=== PATIENT | female | born 1975 | race American Indian/Alaskan Native ===

== ENCOUNTER 2017-07-23 19:53 | Emergency (ER) | payer SELFPAY ==
[~2017-07-23] VITALS: Ht 149.9 cm; Wt 60.0 kg
[~2017-07-23 19:53] MED LIST: DOXYCYCLINE 10100 MG PO; GLUCOPHAGE500 MG/TAB; LORTAB 5/500 501 TAB PO; METFORMIN500 MG PO; MOTRIN 600600 MG/TAB PO; NO HOME MEDICATIONS; NORCO 325 MG-51 TAB PO; PEN-VEE K250 MG PO; PERCOCET 325 MG1 TA2 PO; PHENERGAN 25 TA25 MG PO; PHENERGAN W/CO120 ML PO; PREDNISONE20 MG PO; PROAIR HFA0.09 MG/AC IH; PROVENTIL0.09 MG/A1 IH; SUDAFED30 MG PO; TESSALON P100 MG/CAP PO; ZITHROMAX Z PA250 MG PO
[2017-07-23 19:56] VITALS: BP 143/84; TEMP 97.9
[2017-07-23 21:27] VITALS: PULSE 102
== END 2017-07-23 21:28 | disposition home or self-care (01) ==
LOC: COL.ER 19:53
DX: J06.9 Acute upper respiratory infection, unspecified (principal); E11.9 Type 2 diabetes mellitus without complications

== ENCOUNTER 2018-03-07 20:45 | Emergency (ER) | payer MEDICAID ==
[~2018-03-07] VITALS: Ht 149.9 cm; Wt 63.6 kg
[2018-03-07 20:50] VITALS: TEMP 98.3
[2018-03-07] MEDS ORDERED: AMOXICILLIN 50500 MG PO (23:24)
[2018-03-07] MEDS ORDERED: NORCO 325 MG-51 TAB PO (23:24)
[2018-03-07 23:35] VITALS: BP 159/90; PULSE 88
== END 2018-03-07 23:35 | disposition home or self-care (01) ==
LOC: COL.ER 20:45
DX: K02.9 Dental caries, unspecified (principal); E11.9 Type 2 diabetes mellitus without complications; Z98.51 Tubal ligation status

== ENCOUNTER 2018-10-01 12:18 | Emergency (ER) | payer MEDICAID ==
[~2018-10-01] VITALS: Ht 149.9 cm; Wt 71.8 kg
[~2018-10-01 12:18] MED LIST changes: +AMOXICILLIN 50500 MG PO
[2018-10-01 12:37] VITALS: BP 152/100; PULSE 98; TEMP 99.1
== END 2018-10-01 13:19 | disposition left against medical advice (07) ==
LOC: COL.ER 12:18
DX: R68.84 Jaw pain (principal)

== ENCOUNTER 2019-10-29 13:02 | Emergency (ER) | payer SELFPAY ==
[~2019-10-29] VITALS: Ht 149.9 cm; Wt 71.8 kg
[2019-10-29 13:09] VITALS: TEMP 97.8
[2019-10-29] MEDS ORDERED: FLAGYL500 MG PO (13:56)
[2019-10-29] MEDS ORDERED: AMOXICILLIN 50500 MG PO (13:56)
[2019-10-29] MEDS ORDERED: NORCO 325 MG-51 TAB PO (13:56)
[2019-10-29 14:32] LABS: BASO % 0.5 % (0.0-2.0); EOS # 0.1 (0.0-0.7); EOS % 1.6 % (0-4.0); GRAN # 2.9 (1.4-6.5); GRAN % 52.7 % (42.2-75.2); HEMATOCRIT 39.1 % (37.0-47.0); HEMOGLOBIN 12.9 g/dl (12.5-16.0); LYMPH # 2.1 (1.2-3.4); LYMPH % 37.3 % (20.0-51.0); MEAN CELL VOLUME 79 fl (80.0-100.0); MEAN CORPUSCULAR HEMOGLOBIN 26 pg (27.0-31.0); MEAN CORPUSCULAR HGB CONC 33 g/dl (33.0-37.0); MEAN PLATELET VOLUME 9.6 fl (7.4-10.4); MONO # 0.4 (0.1-0.6); MONO % 7.5 % (1.7-9.3); PLATELET COUNT 310 K/mm3 (130-400); RED BLOOD COUNT 4.93 M/mm3 (4.10-5.30); REDCELL DISTRIBUTION WIDTH-CV 15.6 % (11.5-14.5)
[2019-10-29 14:44] LABS: ALBUMIN 4.2 gm/dL (3.5-5.0); BILIRUBIN,TOTAL 0.4 mg/dL (0.0-1.0); CALCIUM 9.1 mg/dL (8.4-10.2); CREATININE, serum 0.47 (0.52-1.25); TOTAL PROTEIN 7.5 gm/dL (6.4-8.2)
[2019-10-29] MEDS ORDERED: GLUCOPHAGE500 MG/TAB PO (14:55)
[2019-10-29] MEDS ORDERED: LANCETS MC (15:01)
--- NOTE | 2019-10-29 15:42 | NUR ---
Parking Assistant received consultation as patient reports she cannot afford her medications. BERENICE met with the patient who states she lives in [place] and recently became employed at [employer]. Patient does not have insurance coverage at this time. BERENICE consulted Edward, Financial Counselor who states patient received Financial Assistance Application. Patient reports she used to get her medications through [facility] at no cost to her, however the clinic is in [place] and she does not have reliable transportation. Patient reports it's probably been a year since she has been seen there. Patient is working on getting set up with [facility], however she has not turned in the necessary paperwork. BERENICE contacted Priya at [facility] who advised patient would need to complete paperwork before an appointment can be made on either the dental or medical side. Priya faxed over additional dental assistance applications for patient. BERENICE met again with patient who advised she has paperwork completed, just needs to turn it in. Patient states she's had the paperwork for a couple weeks. Patient reports she has a 30 day [place] bus pass that she can use to get to any upcoming appointments at [facility]. BERENICE strongly advised patient turn in paperwork ALYSIA and patient expressed understanding. BERENICE completed medication voucher for patient and faxed voucher and prescriptions to [facility]. Patient understands medication voucher is one time use and that she will need to follow up with [facility] as soon as possible for continued care. Patient states her adult daughter can provide transportation today to get to [facility]. BERENICE collaborated this information to ER Physician.
[2019-10-29 16:25] VITALS: BP 139/81; PULSE 75
== END 2019-10-29 16:25 | disposition home or self-care (01) ==
LOC: COL.ER 13:02
PROVIDERS: Emergency Medicine
DX: K02.9 Dental caries, unspecified (principal); E11.9 Type 2 diabetes mellitus without complications; Z98.51 Tubal ligation status
CPT/HCPCS: J1170; J2405; J7030

== ENCOUNTER 2024-06-29 15:17 | Emergency (ER) | payer SELFPAY ==
[~2024-06-29] VITALS: Ht 149.9 cm; Wt 62.7 kg
[~2024-06-29 15:17] MED LIST changes: +FLAGYL500 MG PO; +GLUCOPHAGE500 MG/TAB PO; +LANCETS MC
[2024-06-29 15:24] VITALS: TEMP 98.4
[2024-06-29] MEDS ORDERED: NIZORAL CR 30GM TOP (15:49)
[2024-06-29 16:00] VITALS: BP 146/94; PULSE 84
== END 2024-06-29 16:00 | disposition home or self-care (01) ==
LOC: COL.ER 15:17
DX: B37.2 Candidiasis of skin and nail (principal); I10 Essential (primary) hypertension